=== PATIENT | male | born 1975 | race Caucasian/White ===

== ENCOUNTER 2017-05-09 10:47 | Inpatient (IN) | payer OTHER ==
[~2017-05-09] VITALS: Ht 180.3 cm; Wt 122.5 kg
[2017-05-09 10:54] VITALS: BP 172/92
[2017-05-09 11:18] LABS: BASO # 0.1 10*3/uL (0.0-0.1); BASO % 0.8 % (0.0-1.0); EOS # 0.2 10*3/uL (0.0-0.4); HEMATOCRIT 42.2 % (42.0-52.0); HEMOGLOBIN 14.5 g/dl (14.0-18.0); LYMPH # 1.3 10*3/uL (1.3-4.4); LYMPH % 20.7 % (27.0-41.0); MEAN CORPUSCULAR HGB 31.9 pg (27.0-31.0); MEAN CORPUSCULAR HGB CONC 34.4 g/dl (33.0-37.0); MEAN PLATELET VOLUME 11.3 fl (9.6-12.3); MONO # 0.7 10*3/uL (0.1-1.0); MONO % 10.3 % (3.0-9.0); NEUT # 4.2 10*3/uL (2.3-7.9); NEUT % 64.6 % (47.0-73.0); PLATELET COUNT AUTOMATED 159 10*3/uL (130-400); RED BLOOD COUNT 4.54 10*6/uL (4.50-5.90); WHITE BLOOD COUNT 6.4 10*3/uL (4.8-10.8)
[2017-05-09 11:27] LABS: URINE AMPHETAMINES < 1000 (1000ng/ml); URINE BARBITURATES < 200 (200ng/ml); URINE BENZODIAZEPINES < 200 (200ng/ml); URINE CANNABINOIDS (THC) > 50 (50ng/ml); URINE COCAINE < 300 (300ng/ml); URINE METHADONE < 300 (300ng/ml); URINE OPIATES < 300 (300ng/ml); URINE PHENCYCLIDINE < 25 (25ng/ml)
[2017-05-09 11:37] VITALS: BP 160/80
[2017-05-09 11:38] LABS: ALBUMIN 4.1 gm/dl (3.1-4.5); ALKALINE PHOSPHATASE 103 U/L (45-117); BUN 13 mg/dl (7-24); CHLORIDE 99 mmol/L (98-107); CREATININE 1.14 mg/dL (0.70-1.30); POTASSIUM 4.3 mmol/L (3.5-5.1); SGOT/AST 78 IU/L (3-35); SGPT/ALT 133 U/L (12-78); SODIUM 133 mmol/L (136-145); TOTAL PROTEIN 7.7 gm/dL (6.4-8.2)
[2017-05-09 11:39] LABS: ACETAMINOPHEN (TYLENOL) < 2.0 ug/ml (10-30); ETHYL ALCOHOL < 3.0 mg/dl (<3); TROPONIN I < 0.015 ng/ml (<0.045)
[2017-05-09 12:00] VITALS: BP 114/69
[2017-05-09 12:30] VITALS: BP 132/82
[2017-05-09] MEDS ORDERED: SIMVASTATIN20 MG PO (13:32)
[2017-05-09] MEDS ORDERED: VITAMIN E400 UNI2 PO (13:33)
[2017-05-09] MEDS ORDERED: LEXAPRO20 MG PO (13:34)
[2017-05-09] MEDS ORDERED: METFORMIN500 MG PO (13:34)
[2017-05-09] MEDS ORDERED: MULTIVITAMINS1 EAC5 PO (13:35)
[2017-05-09] MEDS ORDERED: BENADRYL ALLERG25 M5 PO (13:36)
[2017-05-09] MEDS ORDERED: FISHOIL PO (13:36)
[2017-05-09 16:00] VITALS: BP 130/79
[2017-05-09 16:40] LABS: BILIRUBIN NEGATIVE (NEGATIVE); BLOOD NEGATIVE (NEGATIVE); CLARITY SL CLOUDY (CLEAR); COLOR YELLOW (YELLOW); GLUCOSE 3+ (NEGATIVE); KETONE NEGATIVE (NEGATIVE); LEUKO ESTERASE NEGATIVE (NEGATIVE); NITRITE NEGATIVE (NEGATIVE); PH 5.5 (5.0-9.0); SPECIFIC GRAVITY 1.025 (1.005-1.030); UROBILINOGEN 0.2 E.U./dl (0.2-1.0)
[2017-05-09 16:53] LABS: BACTERIA 2+; EPITHELIAL CELLS 0-2; RBC 0-2 rbc/hpf (0-2); WBC 0-2 wbc/hpf (0-5)
[2017-05-09 20:00] VITALS: BP 152/90
[2017-05-10] VITALS: BP 150/82
[2017-05-10 08:00] VITALS: BP 124/80
[2017-05-10 12:00] VITALS: BP 144/82
[2017-05-10 16:00] VITALS: BP 143/82
[2017-05-10 20:00] VITALS: BP 140/80
[2017-05-11] VITALS: BP 142/80
[2017-05-11 08:00] VITALS: BP 120/72
[2017-05-11 16:00] VITALS: BP 192/87
[2017-05-11 16:45] VITALS: BP 136/70
[2017-05-11 20:00] VITALS: BP 137/79
[2017-05-12] VITALS: BP 125/76
[2017-05-12 07:00] LABS: BASO # 0.1 10*3/uL (0.0-0.1); BASO % 1.3 % (0.0-1.0); EOS # 0.2 10*3/uL (0.0-0.4); EOS % 3.1 % (1.0-4.0); HEMATOCRIT 41.7 % (42.0-52.0); HEMOGLOBIN 14.3 g/dl (14.0-18.0); LYMPH # 1.6 10*3/uL (1.3-4.4); LYMPH % 26.8 % (27.0-41.0); MEAN CELL VOLUME 95.9 fl (80.0-94.0); MEAN CORPUSCULAR HGB 32.9 pg (27.0-31.0); MEAN CORPUSCULAR HGB CONC 34.3 g/dl (33.0-37.0); MEAN PLATELET VOLUME 11.7 fl (9.6-12.3); MONO # 0.7 10*3/uL (0.1-1.0); MONO % 10.7 % (3.0-9.0); NEUT # 3.5 10*3/uL (2.3-7.9); NEUT % 57.4 % (47.0-73.0); PLATELET COUNT AUTOMATED 135 10*3/uL (130-400); RED BLOOD COUNT 4.35 10*6/uL (4.50-5.90); RED CELL DISTRI WIDTH 12.3 % (0-14.5); WHITE BLOOD COUNT 6.1 10*3/uL (4.8-10.8)
[2017-05-12 07:26] LABS: CREATININE 1.01 mg/dL (0.70-1.30)
[2017-05-12 08:00] VITALS: BP 116/71
[2017-05-12] MEDS ORDERED: ATARAX,VISTARIL50 MG PO (10:37)
[2017-05-12] MEDS ORDERED: ZOFRAN 4 MG ED2 TAB PO (10:37)
== END 2017-05-12 12:52 | disposition home or self-care (01) | DRG 897 ==
LOC: ED 10:47 → 5E 11:18 → EDHOLD 11:18 → 5E 11:29
PROVIDERS: Nurse Practitioner Family; ADMIT Internal Medicine
DX: F10.239 Alcohol dependence with withdrawal, unspecified (principal); E11.65 Type 2 diabetes mellitus with hyperglycemia; E87.1 Hypo-osmolality and hyponatremia; F32.9 Major depressive disorder, single episode, unspecified; R74.0 Nonspecific elevation of levels of transaminase and lactic acid dehydrogenase [LDH]; F12.10 Cannabis abuse, uncomplicated; R03.0 Elevated blood-pressure reading, without diagnosis of hypertension; E78.5 Hyperlipidemia, unspecified; E66.01 Morbid (severe) obesity due to excess calories; Z68.37 Body mass index [BMI] 37.0-37.9, adult; Z82.49 Family history of ischemic heart disease and other diseases of the circulatory system; Z79.84 Long term (current) use of oral hypoglycemic drugs; Z79.899 Other long term (current) drug therapy